=== PATIENT | male | born 1965 | race Caucasian/White ===

== ENCOUNTER 2020-05-21 18:27 | Observation (INO) ==
[2020-05-21] MEDS ORDERED: POLYETHYLENE GLYCOL 3350 17 GM PACKET PO PRN (19:57)
[2020-05-21] MEDS ORDERED: SENNOSIDES 8.6 MG TABLET PO PRN (19:58)
[2020-05-21] MEDS ORDERED: SIMETHICONE 80 MG TAB.CHEW PO PRN (19:59)
[2020-05-21] MEDS ORDERED: ENOXAPARIN SODIUM 40 MG/0.4 ML SYRG SC SCH (20:00)
[2020-05-21] MEDS ORDERED: LORazepam 2 MG/ML DISP.SYRIN IV PRN (20:06)
--- NOTE | 2020-05-21 20:19 | HP ---
Chief Complaint - Chief Complaint Date of Service: 05/21/20 Time of Service: 20:00 Chief Complaint: vomiting, sore throat History of Present Illness: Patient started having nausea and vomiting 5 days ago, and also developed sore throat. Denies fever or shortness of breath. Presented to the [facility] ED today, and his oxygen level on room air was 89%. COVID test was positive. He had several lab abnormalities, including hyponatremia with sodium of 132, potassium of 2.7, AST of 680, ALT of 333, ETOH of 71 mg/dL. He reports drinking occasionally. He was given 80 mEq KCl, 10 mg dexamethasone, and a possible banana bag. He takes paxil and clonidine for depression and HTN. He is oxygenating currently on 2 L via NC, 100%. Unknown family history. Medical History (Last Updated 05/21/20 @ 20:09 by Tatyana Mtz DO) Depression Hypertension Surgical History: Surgical History (Last Updated 05/21/20 @ 20:09 by Tatyana Mtz DO) History of appendectomy Social History: (Last Updated 05/21/20 @ 20:09 by Tatyana Mtz DO) Alcohol: alcohol intake: current Review Of Systems (GEN) - Review of Systems Generalized/Overall Review: Absent: Fever EENTM: Present: Throat Pain Respiratory: Absent: Cough, Shortness of Breath Cardiac: Absent: Chest Pain, Edema Abdominal: Present: Nausea, Vomiting, Constipation, Other - decreased appetite, abdominal bloating Genitourinary: Present: No Symptoms Reported Musculoskeletal: Present: No Symptoms Reported Neurological: Present: No Symptoms Reported Exam - Exam Vital Signs: Vital Signs - Last Taken Temp 37 C 05/21/20 18:42 Resp 20 05/21/20 18:42 BP 155/104 H 05/21/20 18:42 Constitutional: Present: Alert, Cooperative, No distress Respiratory: Present: lungs clear, normal breath sounds, no respiratory distress, other - 2L via NC Cardiovascular/Chest: Present: regular rate, rhythm Abdomen: Present: firm, distended, hypoactive Extremity: Absent: lower extremity edema Neurologic: Present: other - fidgety Eye contact: Present: cooperative, good eye contact Assessment/Plan - Assessment/Plan (1) COVID-19 virus infection Assessment: He is day 6 of symptoms. Decadron was started today, and will continue. His AST and ALT are too high for remdesivir. He is oxygenating well on 2 L, and will wean as tolerated. If he is able to wean off oxygen, he could DC home as soon as tomorrow. Problem: Acute (2) Hypertension Assessment: Continue home 0.3 mg clonidine bid. Problem: Chronic (3) Depression Assessment: Continue home 20 mg paxil. Problem: Chronic (4) Alcohol use Assessment: He reports using alcohol occasionally, but his ETOH was 71, and he appears a bit fidgety on exam. He was given a banana bag in the ED at [facility], and can continue thiamine. Will need to monitor for withdrawal. Ativan ordered. Problem: Acute (5) Hypokalemia Assessment: He was given 80 mEq KCl at [facility]. Repeat CMP pending in am. Problem: Acute
[2020-05-22 07:27] LABS: Albumin * 3.4 gm/dl (3.4-5.0); Anion Gap 14.3 mmol/L (6.8-13.8); BUN/Creatinine Ratio 10.1 (9.0-21.6); Bilirubin, Total 1.5 mg/dL (0.0-1.1); Ca. Corrected For Albumin 9.5 mg/dL (8.4-10.2); Calcium * 9.3 mg/dL (7.9-10.9); Carbon Dioxide 25.5 mmol/L (24-32.6); Potassium 2.8 mmol/L (3.4-4.6); Total Protein 6.9 gm/dL (6.2-8.2)
[2020-05-22] MEDS ORDERED: DEXAMETHASONE 4 MG, DEXAMETHASONE 2 MG PO SCH ×2 (09:00)
[2020-05-22] MEDS ORDERED: CLONIDINE HCL 0.3 MG PO SCH (09:00)
[2020-05-22] MEDS ORDERED: FUROSEMIDE 10 MG/ML VIAL IV SCH (09:00)
[2020-05-22] MEDS ORDERED: PARoxetine HCL 20 MG TABLET PO SCH (09:00)
[2020-05-22] MEDS ORDERED: DEXAMETHASONE 4 MG TABLET PO SCH (09:00)
[2020-05-22] MEDS ORDERED: THIAMINE HCL 100 MG in NORMAL SALINE 50 ML IV SCH (09:00)
[2020-05-22] MEDS ORDERED: CLONIDINE HCL PO SCH ×2 (09:00)
--- NOTE | 2020-05-22 09:42 | DS ---
(1) COVID-19 virus infection Problem: Acute (2) Hypoxia Problem: Resolved (3) Hypertension Problem: Chronic (4) Depression Problem: Chronic (5) Alcohol use Problem: Acute (6) Hypokalemia Problem: Resolved Date of Discharge:: 05/22/20 Hospital Course: Patient started having nausea and vomiting 5 days ago, and also developed sore throat. Denies fever or shortness of breath. Presented to the [facility] ED today, and his oxygen level on room air was 89%. COVID test was positive. He had several lab abnormalities, including hyponatremia with sodium of 132, potassium of 2.7, AST of 680, ALT of 333, ETOH of 71 mg/dL. He reports drinking occasionally. He was given 80 mEq KCl, 10 mg dexamethasone, and a possible banana bag. He takes paxil and clonidine for depression and HTN. He is oxygenating currently on 2 L via NC, 100%. He was able to wean from oxygen the first night of admission. His potassium was still low the next morning, and an additional 40 mEq KCl was given IV, and 30 mEq KlorCon po. His K+ improved to 4.1. AST improved to 380, ALT slightly improved to 318. He was DC'd home with cepacol for his sore throat, simethicone for bloating, and decadron for COVID. Procedures Performed: none Results and Findings: Lab Pending Results 05/22/20 06:45: Sodium 134, Plasma Sodium 135, Potassium 2.8 L, Chloride 97, Carbon Dioxide 25.5, Anion Gap 14.3 H, BUN 11, Creatinine 1.09, Est GFR (Non-Af Amer) 74, BUN/Creatinine Ratio 10.1, Random Glucose 132 H, Calcium 9.3, Calcium Adj for Albumin 9.5, Total Bilirubin 1.5 H, AST 380 H, ALT 318 H, Alkaline Phosphatase 97, Total Protein 6.9, Albumin 3.4 Discharge Location: Home Disposition: Home self-care Condition: Good Discharge Activity: Activity as tolerated Discharge Diet: General/regular food Additional Patient Instructions (free text): [facility] will call you Saturday with Loni Grady follow up appointment. Prescriptions (Any new or edited meds): Benzocaine/Menthol [Cepacol Sore Throat] 1 ea MM PRN PRN #1 box PRN Reason: Sore Throat Transmission Status: Received by [place] Dexamethasone 6 mg PO DAILY #5 tab Transmission Status: Received [place] Potassium Chloride [Klor-Con 10] 30 meq PO DAILY #30 tablet.sa Transmission Status: Received [place] Polyethylene Glycol 3350 [Miralax] 17 gm PO DAILY PRN #1 bottle PRN Reason: Constipation Transmission Status: Received [place] Simethicone [Mylicon Chewable Tablets] 80 mg PO QID PRN #1 bottle PRN Reason: Indigestion [facility] [place] Complete Home Medications List: Complete Home Medication List: Aspirin [Aspirin EC] 81 mg PO DAILY 05/21/20 Clonidine HCl 0.3 mg PO BID 05/21/20 PARoxetine HCL [Paxil] 40 mg PO DAILY 05/21/20 Benzocaine/Menthol [Cepacol Sore Throat] 1 ea MM PRN PRN #1 box 05/22/20 Clonidine HCl 0.3 mg PO BID tab 05/22/20 Dexamethasone 6 mg PO DAILY #5 tab 05/22/20 Polyethylene Glycol 3350 [Miralax] 17 gm PO DAILY PRN #1 bottle 05/22/20 Potassium Chloride [Klor-Con 10] 30 meq PO DAILY #30 tablet.sa 05/22/20 Simethicone [Mylicon Chewable Tablets] 80 mg PO QID PRN #1 bottle 05/22/20 Forms: Patient Portal Registration
[2020-05-22] MEDS ORDERED: FLU VACC QS2020-21(6MOS UP)/PF 60 MCG/0.5 ML SYRINGE IM ONE (10:00)
[2020-05-22] MEDS ORDERED: BENZOCAINE/MENTHOL 16 EACH BOX MM PRN (11:14)
[2020-05-22] MEDS ORDERED: POTASSIUM CHLORIDE 10 MEQ TABLET.SA PO SCH (11:15)
[2020-05-22] MEDS: POTASSIUM CHLORIDE IN WATER 100 ML IV SCH ×4 (11:59→15:03)
[2020-05-22 17:18] LABS: BUN/Creatinine Ratio 15.6 (9.0-21.6); Calcium * 9.2 mg/dL (7.9-10.9); Carbon Dioxide 25.1 mmol/L (24-32.6); Estimated Creat Clear 68.3; Potassium 4.1 mmol/L (3.4-4.6)
[2020-05-22 20:05] VITALS: BP 124/82
== END 2020-05-22 19:38 | disposition home or self-care (01) ==
LOC: INTOOBSV 18:27 → MS 18:27
PROVIDERS: ADMIT Family Medicine; ATTEND Family Medicine